=== PATIENT | female | born 1990 | race Caucasian/White ===

== ENCOUNTER → 2017-06-21 | Outpatient (CLI) | payer MEDICAID ==
[~2017-06-21] MED LIST: GADOBUTROL 7.5 MMOL/7.5 ML VIAL ONE
== END ==
LOC: CFH 10:24
PROVIDERS: ATTEND Registered Nurse
DX: G43.909 Migraine, unspecified, not intractable, without status migrainosus (principal); F41.9 Anxiety disorder, unspecified; F32.9 Major depressive disorder, single episode, unspecified
CPT/HCPCS: 70553; A9585